=== PATIENT | male | born 2000 | race Caucasian/White ===

== ENCOUNTER 2022-10-02 16:18 | Emergency (ER) | payer SELFPAY ==
[~2022-10-02] VITALS: Ht 170.2 cm; Wt 113.4 kg
[2022-10-02 16:24] VITALS: BP 120/89; PULSE 102; RESP 20; TEMP 99.2; O2SAT 98
--- NOTE | 2022-10-02 16:40 | NUR ---
ASSISTED SHONA DIETZ TO EXAMINE PT.
[2022-10-02] MEDS ORDERED: IBUP-2213 PO (16:55)
[2022-10-02] MEDS ORDERED: ACET-10509 PO (16:55)
--- NOTE | 2022-10-02 18:09 | NUR ---
Patient discharged with v/s stable. Written and verbal after care instructions given and explained. Patient verbalized understanding. Ambulatory with steady gait. All questions addressed prior to discharge. Advised to follow up with PMD.
== END 2022-10-02 18:09 | disposition home or self-care (01) ==
LOC: MED 16:18
DX: S30.21XA Contusion of penis, initial encounter (principal); Z79.899 Other long term (current) drug therapy; X58.XXXA Exposure to other specified factors, initial encounter; Y93.89 Activity, other specified; Y92.89 Other specified places as the place of occurrence of the external cause; Y99.8 Other external cause status
CPT/HCPCS: 99282